=== PATIENT | female | born 1960 | race African-American/Black ===

== ENCOUNTER 2017-07-21 10:46 | Emergency (ER) | payer OTHER ==
[~2017-07-21] VITALS: Ht 149.9 cm; Wt 88.0 kg
[~2017-07-21 10:46] MED LIST: ATENOLOL50 MG; ATORVASTATIN CA40 MG; BAYER CHEWABLE81 MG; CARVEDILOL6.25 MG; CATAFLAM50 MG PO; HYDROCHLOROTHIA25 MG PO; METFORMIN HCL500 MG; OMEPRAZOLE20 M1; ORPH100T PO; SINGULAIR 10MG10 MG; VISTARIL25 MG
== END 2017-07-21 20:16 | disposition home or self-care (01) ==
LOC: ER 10:46
DX: N93.8 Other specified abnormal uterine and vaginal bleeding (principal); B37.3 Candidiasis of vulva and vagina

== ENCOUNTER 2018-08-08 17:37 | Emergency (ER) | payer OTHER ==
[~2018-08-08] VITALS: Ht 157.5 cm; Wt 89.8 kg
[2018-08-08] MEDS ORDERED: VASOTEC5 MG (18:05)
== END 2018-08-08 19:57 | disposition home or self-care (01) ==
LOC: ER 17:37
DX: I16.0 Hypertensive urgency (principal); I10 Essential (primary) hypertension

== ENCOUNTER → 2020-10-26 | Emergency (ER) | payer OTHER ==
[~2020-10-26] VITALS: Ht 152.4 cm; Wt 83.9 kg
[~2020-10-26] MED LIST changes: +DICLOFENAC SODI75 MG PO; +VASOTEC5 MG
== END | disposition home or self-care (01) ==
LOC: ER 17:10
DX: K57.90 Diverticulosis of intestine, part unspecified, without perforation or abscess without bleeding (principal); R10.31 Right lower quadrant pain

== ENCOUNTER 2021-06-13 11:39 | Emergency (ER) | payer OTHER ==
[~2021-06-13] VITALS: Ht 152.4 cm; Wt 82.6 kg
[2021-06-13] MEDS ORDERED: ZESTRIL2.5 MG PO (11:59)
[2021-06-13] MEDS ORDERED: ATORVASTATIN CA40 MG PO (11:59)
[2021-06-13] MEDS ORDERED: METFORMIN HCL500 M3 PO (12:00)
[2021-06-13] MEDS ORDERED: HYDROCHLOROTHIA25 MG PO (12:00)
[2021-06-13] MEDS ORDERED: ADULT LOW DOSE81 M1 PO (12:00)
[2021-06-13] MEDS ORDERED: CARVEDILOL6.25 MG (12:01)
[2021-06-13] MEDS ORDERED: PEPCID AC20 MG PO (17:39)
[2021-06-13] MEDS ORDERED: NAPROXEN500 MG PO (17:39)
== END 2021-06-13 17:43 | disposition home or self-care (01) ==
LOC: ER 11:39
DX: M54.9 Dorsalgia, unspecified (principal); R10.32 Left lower quadrant pain

== ENCOUNTER 2021-09-01 13:22 | Emergency (ER) | payer OTHER ==
[~2021-09-01] VITALS: Ht 152.4 cm; Wt 85.7 kg
[~2021-09-01 13:22] MED LIST changes: +ADULT LOW DOSE81 M1 PO; +ATORVASTATIN CA40 MG PO; +METFORMIN HCL500 M3 PO; +NAPROXEN500 MG PO; +PEPCID AC20 MG PO; +ZESTRIL2.5 MG PO
== END 2021-09-01 15:44 | disposition home or self-care (01) ==
LOC: ER 13:22
DX: L03.113 Cellulitis of right upper limb (principal); M79.641 Pain in right hand

== ENCOUNTER 2023-04-12 15:22 | Emergency (ER) | payer OTHER ==
[~2023-04-12] VITALS: Ht 152.4 cm; Wt 88.0 kg
[2023-04-12] MEDS ORDERED: PROTONIX20 MG PO (16:12)
== END 2023-04-12 22:45 | disposition home or self-care (01) ==
LOC: ER 15:23
DX: O20.9 Hemorrhage in early pregnancy, unspecified (principal); Z3A.17 17 weeks gestation of pregnancy